=== PATIENT | female | born 1965 | race Caucasian/White ===

== ENCOUNTER → 2017-08-02 | Outpatient (CLI) | payer OTHER ==
--- NOTE | 2017-08-02 08:26 | WOMENS IMAGING REPORT ---
EXAM DESCRIPTION: U/S ABDOMEN TOTAL COMPLETED DATE/TIME: 08/02/2017 7:59 am REASON FOR STUDY: RIGHT UPPER QUADRANT PAIN R10.11 RIGHT UPPER QUADRANT PAIN COMPARISON: None. TECHNIQUE: Dynamic and static grayscale images acquired of the abdomen and recorded on PACS. Additio nal selected color Doppler and spectral images recorded. LIMITATIONS: None. FINDINGS: PANCREAS: No masses. Visualized pancreatic duct normal caliber. LIVER: Echotexture is coarse with increased echogenicity consistent with fatty infiltration. LIVER VASCULATURE: Normal directional flow of the main portal vein and hepatic veins. GALLBLADDER: Surgically absent. ULTRASOUND-DETECTED CALDWELL'S SIGN: Not applicable. INTRAHEPATIC DUCTS AND COMMON DUCT: CBD and intrahepatic ducts normal caliber. No filling defects. INFERIOR VENA CAVA: Normal flow. AORTA: No aneurysm. RIGHT KIDNEY: Normal size. Normal echogenicity. No solid or suspicious masses. No hydronephrosis. No calcifications. LEFT KIDNEY: Normal size. Normal echogenicity. No solid or suspicious masses. No hydronephrosis. No calcifications. SPLEEN:Normal size. No solid masses. PERITONEAL AND PLEURAL SPACES: No ascites or effusions. OTHER: No other significant finding. IMPRESSION: FATTY LIVER. NO OTHER SIGNIFICANT FINDING. TECHNICAL DOCUMENTATION: JOB ID: [id number] [employer]- All Rights Reserved
== END ==
LOC: WI 06:56
PROVIDERS: ATTEND Nurse Practitioner Primary Care
DX: R10.11 Right upper quadrant pain (principal); K76.0 Fatty (change of) liver, not elsewhere classified
CPT/HCPCS: 76700

== ENCOUNTER 2017-10-21 14:15 | Emergency (ER) | payer OTHER ==
[2017-10-21] MEDS ORDERED: IBUPROFEN 800 MG TABLET PO ONE (15:49)
[2017-10-21] MEDS ORDERED: SILVER SULFADIAZINE 1% CREAM 25 GM TP ONE (15:49)
--- NOTE | 2017-10-21 15:57 | ER Document Report ---
HPI - HPI Pain Level: 5 Context: Patient is a 52-year-old female presents emergency department after basically touching the surface of her stovetop. Patient states that she has been cooking and is looking for a place to sit down a bowl when she touched the top of her stove since he was no longer red and she burned the surface of her hand. She did not take anything prior to arrival. Has a history of fatty liver disease states that she was told she can never have Tylenol and otherwise has a history of low back pain. She otherwise denies any allergies upon initial history. Has full range of motion of her fingers states that the worst pain is along the top surface of her palm at the base of her fingers where the redness is but there is no evidence of bulla, open wounds or bleeding. Tetanus is up-to-date - REPRODUCTIVE Reproductive: DENIES: : Past Medical History - Social History Smoking Status: Smoker,Current Status Unk Family History: Reviewed & Not Pertinent - Past Medical History Cardiac Medical History: Denies: Hx Coronary Artery Disease, Hx Heart Attack, Hx Hypertension Pulmonary Medical History: Reports: Hx Bronchitis - STATES RECENT HAD BRONCHITIS AND THE FLU (IN AUG) Denies: Hx Asthma, Hx COPD, Hx Pneumonia Neurological Medical History: Denies: Hx Cerebrovascular Accident, Hx Seizures Musculoskeltal Medical History: Denies Hx Arthritis Past Surgical History: Reports: Hx Appendectomy, Hx Cholecystectomy, Hx Orthopedic Surgery - bilat carpel tunnel - Immunizations Hx Diphtheria, Pertussis, Tetanus Vaccination: No Vertical Provider Document - CONSTITUTIONAL Agree With Documented VS: Yes Notes: PHYSICAL EXAM GENERAL: Alert, interacts well. EXTREMITIES: Moves all 4 extremities spontaneously. No edema, radial and dorsalis pedis pulses 2/4 bilaterally. No cyanosis. NEUROLOGICAL: Alert and oriented x4. Normal speech. PSYCH: Normal affect, normal mood. SKIN: Warm, dry, normal turgor. Only erythema over the palmar surface over the distal metacarpals at the base of the fingers without any evidence of erythema, bulla of the surrounding castillo surface, digits. Patient with full range of motion. Cap refill is intact. - INFECTION CONTROL TRAVEL OUTSIDE OF THE [place] IN LAST 30 DAYS: No - RESPIRATORY O2 Sat by Pulse Oximetry: 98 Course - Re-evaluation Re-evalutation: 10/21/17 16:18 Patient is a 52-year-old female who is hemodynamically stable, no acute distress and afebrile. Burn occurred approximately 1-2 hours prior to arrival. At this time does not show any evidence of developing dermal injury with evidence of blisters. Educated patient on signs and symptoms indicating need for silver Silvadene cream which will send her home with an indications for return to the emergency department though be concerning for underlying infection. Otherwise to f/u with primary care in 3-5 days. While discussing pain medication patient was offered a home prescription for tramadol which she initially accepted after review of use and side effects but upon review of her allergies that were noted in the computer and showed tramadol and again reviewed with her she states she had nausea with it before. She declined dose here or prescription. She had not taken any motrin BUTCHER SCULLION, declined at [facility] and now requesting Motrin to be given. - Vital Signs Vital signs: Temp Pulse Resp BP Pulse Ox 97.5 F 66 16 139/55 H 98 10/21/17 14:43 10/21/17 14:43 10/21/17 14:43 10/21/17 14:43 10/21/17 14:43 Discharge - Discharge Clinical Impression: Burn, hand, first degree Qualifiers: Encounter type: initial encounter Burn of hand location: multiple sites Laterality: left Qualified Code(s): T23.192A - Burn of first degree of multiple sites of left wrist and hand, initial encounter Condition: Good Disposition: HOME, SELF-CARE Instructions: Taylor ([facility]), Use of Spig-Ppj-Muuigyc Ibuprofen ([facility]), Silvadene Cream ([facility]), Soap Cleansing ([facility]) Additional Instructions: You were seen for taylor today. Please clean and dress the areas twice daily and then apply the Silvadene cream that you were sent home with. Keep the area clean and dressed. Please return if you develop pus from the wounds, spreading redness from the areas, worsening pain, or any other symptoms that are worrisome to you. Please follow-up with your primary care doctor in the next 1- 2 days. Referrals: MAMI HOLDER NP [Primary Care Provider] - Follow up in 1 week
[2017-10-21 16:14] VITALS: BP 145/96
== END 2017-10-21 16:13 | disposition home or self-care (01) ==
LOC: ER 14:15
DX: T23.192A Burn of first degree of multiple sites of left wrist and hand, initial encounter (principal); X15.0XXA Contact with hot stove (kitchen), initial encounter; Y93.G3 Activity, cooking and baking
CPT/HCPCS: 99283

== ENCOUNTER → 2017-12-04 | Outpatient (CLI) | payer OTHER ==
[2017-12-06 15:13] LABS: ANTINUCLEAR ANTIBODIES Negative (Negative)
== END ==
LOC: OD 14:50
PROVIDERS: ATTEND Internal Medicine Gastroenterology
DX: K76.0 Fatty (change of) liver, not elsewhere classified (principal)
CPT/HCPCS: 36415; 86038; 86256

== ENCOUNTER 2017-12-30 06:55 | Day surgery (SDC) | payer OTHER ==
[2017-12-30] MEDS ORDERED: PROPOFOL INJ 200 MG/20 ML VIAL IV ONE (07:16)
[2017-12-30 08:52] VITALS: BP 111/61
--- NOTE | 2017-12-30 12:56 | Operative Report ---
Operative Report DATE OF SURGERY: 12/30/17 Operative Report: The risks, benefits and alternatives of the procedure including risks of bleeding, perforation requiring surgery are explained to the patient in detail and informed consent is obtained. Patient was taken back to the endoscopy suite and placed in the left, lateral decubital position. Timeout was called. Propofol medications administered. A rectal examination is done which did not reveal any masses, tears or fissures. An Olympus videoscope is inserted into the patient's rectum. The scope was then carefully advanced all the way to the cecum. The cecum was identified by the usual anatomical landmarks including the ileocecal valve as well as the appendiceal office. Photodocumentation is obtained. The scope was then sequentially pulled back via the various segments of the colon including the ascending colon, hepatic flexure, transverse colon, splenic flexure, descending colon and finally into the rectosigmoid portions of the colon. Retroflexion maneuvers performed. PREOPERATIVE DIAGNOSIS: Change in bowel habits POSTOPERATIVE DIAGNOSIS: Colon polyp was removed via biopsy forceps. Internal hemorrhoids. Diverticulosis OPERATION: Colonoscopy with biopsy SURGEON: JUAN LUTZ ANESTHESIA: LMAC TISSUE REMOVED OR ALTERED: As noted above. COMPLICATIONS: None. ESTIMATED BLOOD LOSS: None. INTRAOPERATIVE FINDINGS: As noted above. PROCEDURE: Patient tolerated procedure well. No immediate postprocedure complications are noted. Patient discharged in good condition. Discharge date 12/30/2017. Discharge diet: Regular. Discharge activity: Regular. 2-3 week follow-up to discuss findings. Patient is instructed to call the office or proceed to the emergency room should there be any further problems or questions. We will wait on pathology. If biopsies are negative,10 year surveillance colonoscopy.
== END 2017-12-30 08:55 | disposition home or self-care (01) ==
LOC: END 06:55
PROVIDERS: ATTEND Internal Medicine Gastroenterology
DX: K64.8 Other hemorrhoids (principal); K57.30 Diverticulosis of large intestine without perforation or abscess without bleeding; D12.6 Benign neoplasm of colon, unspecified; K76.0 Fatty (change of) liver, not elsewhere classified; E66.9 Obesity, unspecified; F17.210 Nicotine dependence, cigarettes, uncomplicated; Z88.0 Allergy status to penicillin; Z88.8 Allergy status to other drugs, medicaments and biological substances; Z88.6 Allergy status to analgesic agent; Z68.41 Body mass index [BMI] 40.0-44.9, adult; Z79.899 Other long term (current) drug therapy
CPT/HCPCS: 45380; 88305 ×2; J2704; 811

== ENCOUNTER → 2018-02-04 | Outpatient (CLI) | payer OTHER ==
--- NOTE | 2018-02-10 13:12 | WOMENS IMAGING REPORT ---
EXAM DESCRIPTION: 3D SCREENING MAMMO BILAT COMPLETED DATE/TIME: 02/04/2018 2:31 pm REASON FOR STUDY: SCREENING MAMMO Z12.31 ENCNTR SCREEN MAMMOGRAM FOR MALIGNANT NEOPLASM OF AVEL COMPARISON: None. TECHNIQUE: Standard craniocaudal and mediolateral oblique views of each breast recorded using digita l acquisition and breast tomosynthesis. LIMITATIONS: None. FINDINGS: Findings present which are benign by mammographic criteria. No suspicious masses, calcifi cations or architectural distortion. Pertinent benign findings: Circumscribed nodules in both breasts. These have mammographic appearance of the incidental intramammary lymph nodes. Read with the assistance of CAD. .[facility] - R2 Cenova Version 1.3 .[facility] Imaging - R2 Cenova Version 1.3 .[facility] Imaging - R2 Cenova Version 2.4 .[facility] - R2 Cenova Version 2.4 .[facility] - R2 [employer] Mounter Version 9.2 Benign mammographic findings may include one or more of the following: Smooth masses, popcorn/rim/co arse calcifications, asymmetries, post-procedure changes, and lesions with long-standing stability. IMPRESSION: BENIGN MAMMOGRAPHIC FINDINGS. BIRADS 2 BREAST DENSITY: a. The breasts are almost entirely fatty. BIRAD: 2 BENIGN FINDING(S) RECOMMENDATION: RECOMMENDATION: ROUTINE SCREENING COMMENT: The patient has been notified of the results by letter per SA requirements. Additional no tification policies are in place for contacting patient with suspicious or incomplete findings. Quality ID #[id number]: The [employer] recommends an annual screening mammogram for women aged 40 years or over. This facility utilizes a reminder system to ensure that all patients receive reminder letters, and/or direct phone calls for appointments. This includes reminders for routine scr eening mammograms, diagnostic mammograms, or other Breast Imaging Interventions when appropriate. Th is patient will be placed in the appropriate reminder system. The [employer] (ACR) has developed recommendations for screening MRI of the breast s in certain patient populations, to be used in conjunction with mammography. Breast MRI surveillanc e may be appropriate for women with more than 20% lifetime risk of developing breast cancer as deter mined by genetic testing, significant family history of the disease, or history of mantle radiation f or Hodgkins Disease. ACR Practice Guidelines 2008. DBT Technology DBT is a type of tomographic mammography. With conventional mammography, overlapping breast tissue ma y make lesions difficult to detect, even with good compression. DBT uses an x-ray tube that rotates a round the breast, taking images at different angles. These images are then combined to create thin sl ices of the breast that the radiologist can view as a 3D reconstruction. The [employer] unit can perform full-field digital mammograms (2D imaging); or DBT (3D imaging); or both, in a combination mode that quickly performs both the mammogram and the tomosynthesis scan while the breast is still compressed. PQRS 6045F: Fluoroscopic imaging is not utilized for breast tomosynthesis. TECHNICAL DOCUMENTATION: FINDING NUMBER: (1) ASSESSMENT: (1) JOB ID: [id number] [employer]- All Rights Reserved Reading location - IP/workstation name: [email or web address]
== END ==
LOC: WI 14:13
PROVIDERS: ATTEND Nurse Practitioner Primary Care
DX: Z12.31 Encounter for screening mammogram for malignant neoplasm of breast (principal)
CPT/HCPCS: 77063; 77067

== ENCOUNTER → 2018-11-24 | Outpatient (CLI) | payer OTHER ==
--- NOTE | 2018-11-24 10:53 | RADIOLOGY REPORT (SQ) ---
EXAM DESCRIPTION: MRI LUMBAR SPINE WITHOUT COMPLETED DATE/TIME: 11/24/2018 8:55 am REASON FOR STUDY: OTHER INTERVERTEBRAL DISC DEGENERATION, LUMBAR REGION M51.36 OTHER INTERVERTEBRAL DISC DEGENERATION, LUMBAR REGION COMPARISON: MRI lumbar spine 12/31/2015 CT abdomen pelvis 01/02/2016 TECHNIQUE: Sagittal and Axial imaging includes T1, T2, STIR and gradient echo sequences. Coronal T2/ HASTE imaging. LIMITATIONS: None. FINDINGS: VISUALIZED UPPER ABDOMEN: Limited evaluation. No acute or suspicious findings suggested. SEGMENTATION: No transitional anatomy. The lowest well-developed disc space is labeled L5-S1. ALIGNMENT: Very mild grade 1 anterolisthesis of L3 over L4, and L4 over L5 related to advanced bilate ral facet arthropathy VERTEBRAE: Intact. BONE MARROW: Normal. No marrow replacement or reactive changes. DISC SIGNAL: Diffuse decreased T2 weighted intervertebral disc signal POSTERIOR ELEMENTS: Bulky bilateral facet arthropathy at L3-4 and L4-5 HARDWARE: None in the spine. CORD AND CONUS: Normal in size and signal intensity. Conus at the L1-2 level. SOFT TISSUES: No aortic aneurysm seen. No bulky retroperitoneal adenopathy or mass. No paraspinal mas s or fluid. T11-12: At the upper edge of the field of view. Bulky bilateral facet hypertrophy is present withou t central or foraminal encroachment T12-L1: Unremarkable L1-L2: Broad diffuse posterior disc bulge and bony spurring along with mild bilateral facet hypertrop hy causes borderline central canal stenosis. There is mild bilateral inferior foraminal narrowing wi thout exiting L1 nerve root impingement. L2-L3: Moderate bilateral facet hypertrophy. No significant posterior disc bulging or central or for aminal stenosis. L3-L4: Minimal anterolisthesis of L3 over L4. Bulky bilateral facet hypertrophy and ligamentum flavu m thickening is present. Mild diffuse posterior disc bulging. This causes mild to moderate central canal narrowing with flattening of the thecal sac into a triangular shape, and partial effacement of CSF around the lumbar nerve roots. This finding is best shown on axial T2 image 17 through 19, and s agittal image 8. Elsewhere at L3-4, there is mild bilateral foraminal narrowing without definite exi ting L3 nerve root impingement. L4-L5: Very mild anterolisthesis of L4 over L5 with very bulky bilateral facet and ligament hypertrop hy/ ossification. In borderline central canal narrowing. There is mild bilateral inferior foraminal narrowing without exit L4 nerve root impingement. L5-S1: Bulky bilateral facet hypertrophy is present causing mild central canal narrowing. There is m ild bilateral foraminal narrowing from facet hypertrophy without exiting L5 nerve root impingement. SACRUM: Visualized upper sacrum intact. OTHER: No other significant findings. IMPRESSION: Degenerative changes most pronounced at L3-4. TECHNICAL DOCUMENTATION: JOB ID: [id number] [employer]- All Rights Reserved Reading location - IP/workstation name: [email or web address]
== END ==
LOC: RAD 08:01
PROVIDERS: ATTEND Obstetrics & Gynecology
DX: M51.36 Other intervertebral disc degeneration, lumbar region (principal)
CPT/HCPCS: 72148

== ENCOUNTER 2019-05-13 04:06 | Emergency (ER) | payer SELFPAY ==
[2019-05-13] MEDS ORDERED: ASPIRIN 81 MG TABLET, CHEWABLE PO ONE (04:30)
[2019-05-13] MEDS ORDERED: MORPHINE SULFATE 10 MG/ML INJ IV ONE (04:31)
[2019-05-13 05:06] LABS: ABSOLUTE EOSINOPHILS # (AUTO) 0.3 10^3/uL (0.0-0.6); ABSOLUTE LYMPHOCYTES (AUTO) 2.9 10^3/uL (0.5-4.7); ABSOLUTE MONOCYTES (AUTO) 0.7 10^3/uL (0.1-1.4); ABSOLUTE NEUT (AUTO) 4.6 10^3/uL (1.7-8.2); BASOPHILS % (AUTO) 0.6 % (0-2); EOSINOPHILS % (AUTO) 3.1 % (0-6); HEMATOCRIT 38.5 % (36.0-47.0); HEMOGLOBIN 13.3 g/dL (12.0-15.5); LYMPHOCYTES % (AUTO) 33.6 % (13-45); MEAN CORPUSCULAR HEMOGLOBIN 31.3 pg (27.0-33.4); MEAN CORPUSCULAR HGB CONC 34.5 g/dL (32.0-36.0); MEAN CORPUSCULAR VOLUME 91 fl (80-97); MONOCYTES % (AUTO) 8.3 % (3-13); PLATELET COUNT 207 10^3/uL (150-450); RED BLOOD COUNT 4.24 10^6/uL (3.72-5.28); RED CELL DISTRIBUTION WIDTH 13.2 % (11.5-14.0); SEGMENTED NEUTROPHILS % (AUTO) 54.4 % (42-78); TOTAL CELLS COUNTED % (AUTO) 100 %; WHITE BLOOD COUNT 8.5 10^3/uL (4.0-10.5)
--- NOTE | 2019-05-13 05:12 | ER Document Report ---
ED General - General Chief Complaint: Shoulder Pain Stated Complaint: LEFT SHOULDER PAIN Time Seen by Provider: 05/13/19 04:24 Primary Care Provider: CATALINA HOLDER MD [Primary Care Provider] - Follow up as needed TRAVEL OUTSIDE OF THE [place] IN LAST 30 DAYS: No - HPI Notes: 54-year-old female presents left-sided shoulder and back pain. Patient describes pain in her medial scapular region that radiates around her left arm. Sharp, sometimes worse with motion. No discrete injury. No fever, chills or sweats. No cough. No dyspnea. Is concerned because she has a strong family history of heart disease. States she has a history of possible high cholesterol but is not treated. Denies any other cardiac risk factors. No prior history of stress testing, no cath. No cocaine use. Non-smoker. No other modifying factors, no other associated symptoms, no other provocative or palliative factors. - Related Data Allergies/Adverse Reactions: methocarbamol Allergy (Unknown, Verified 12/30/17 07:14) Penicillins Allergy (Unknown, Verified 12/30/17 07:14) latex [Latex] Allergy (Verified 12/30/17 07:14) Rash tramadol [Tramadol] Allergy (Verified 12/30/17 07:14) Hives Past Medical History - Social History Smoking Status: Never Smoker Chew tobacco use (# tins/day): No Frequency of alcohol use: None Drug Abuse: None Family History: Reviewed & Not Pertinent Patient has suicidal ideation: No Patient has homicidal ideation: No - Past Medical History Cardiac Medical History: Reports: Hx Hypercholesterolemia Denies: Hx Coronary Artery Disease, Hx Heart Attack, Hx Hypertension Pulmonary Medical History: Reports: Hx Bronchitis Denies: Hx Asthma, Hx COPD, Hx Pneumonia Neurological Medical History: Denies: Hx Cerebrovascular Accident, Hx Seizures Renal/ Medical History: Denies: Hx Peritoneal Dialysis Musculoskeletal Medical History: Denies Hx Arthritis Past Surgical History: Reports: Hx Appendectomy, Hx Cholecystectomy, Hx Orthopedic Surgery - bilat carpel tunnel - Immunizations Hx Diphtheria, Pertussis, Tetanus Vaccination: No Review of Systems - Review of Systems Notes: Review of systems as in the history of present illness, otherwise negative x 10 systems. Physical Exam - Vital signs Vitals: Resp Pulse Ox 13 96 05/13/19 04:19 05/13/19 04:19 - Notes Notes: General: Well developed . HEENT: Normocephalic, atraumatic. Pupils equal round reactive to light. No JVD. Chest: No trauma. Respiratory: Good air exchange, normal excursion. Cardiac: Regular rhythm. No murmurs or gallops. Abdomen: Soft, benign. Nondistended. Nontender. Back: No asymmetry or gross abnormality. Motor: Grossly normal power and tone. Neurologic: Alert, nonfocal. Cranial nerves II-12 are intact. Sensation intact. Vascular: Well perfused. Normal peripheral pulses. Skin: No petechiae or purpura. Extremities: There is no anterolateral chest or shoulder tenderness, no edema or erythema. However, Rebecca largely reproduce her pain with certain motions such as bringing her arm across her chest Course - Re-evaluation Re-evalutation: 05/13/19 05:11 54-year-old female with atypical pain, I think this is unlikely ACS. Given her atypical pain, prolonged duration of over greater than 12 hours and unrelenting symptoms, I think a single negative troponin makes the posttest probability of ACS acceptably low. Will consider atypical cervical radiculopathy, shoulder strain, bursitis or other etiology. Of note, she has normal pulse and put through all range of motion of the shoulder, no evidence of vascular steal. Normal arterial exam. Plan to proceed with x-ray of the shoulder, chest, troponin, x-ray, EKG and reevaluate. 05/13/19 05:48 Labs reviewed. CBC normal, chemistries normal, troponin normal. Chest x-ray and shoulder are unremarkable. Patient had modest improvement. My suspicion for ACS is very low. Likely mechanical or musculoskeletal. He is discharged home with prescription for diclofenac, already has Flexeril at home, follow-up with primary care doctor the next 24 to 48 hours. - Vital Signs Vital signs: Temp Pulse Resp BP Pulse Ox 97.7 F 69 13 127/72 H 94 05/13/19 04:20 05/13/19 04:20 05/13/19 05:09 05/13/19 05:09 05/13/19 05:09 - Laboratory Result Diagrams: 05/13/19 04:46 05/13/19 04:46 Laboratory results interpreted by me: 05/13/19 04:46 Chloride 108 H BUN 24 H - EKG Interpretation by Me EKG shows normal: Sinus rhythm, Piggott, Intervals, QRS Complexes Voltage: Consistant with LVH Discharge - Discharge Clinical Impression: Shoulder pain Qualifiers: Chronicity: acute Laterality: left Qualified Code(s): M25.512 - Pain in left shoulder Disposition: HOME, SELF-CARE Instructions: Arm Pain, Nonspecific ([facility]) Prescriptions: Diclofenac Sodium 75 mg PO Q12 7 Days #14 tablet.dr Referrals: CATALINA HOLDER MD [Primary Care Provider] - Follow up in 3-5 days
[2019-05-13 05:18] LABS: ANION GAP 8 (5-19); BLOOD UREA NITROGEN 24 mg/dL (7-20); CALCIUM 9.4 mg/dL (8.4-10.2); CARBON DIOXIDE 25 mmol/L (22-30); CHLORIDE 108 mmol/L (98-107); GLUCOSE 108 mg/dL (75-110); POTASSIUM 4.2 mmol/L (3.6-5.0)
--- NOTE | 2019-05-13 05:26 | RADIOLOGY REPORT (SQ) ---
CLINICAL HISTORY: chest pain COMPARISON: July 30, 2014. TECHNIQUE: XR CHEST 1 VIEW 05/13/2019 4:31 AM CDT FINDINGS: Cardiac silhouette is normal in size. Lungs are clear without consolidation, atelectasis, mass or edema. There is no pleural effusion. There is no pneumothorax. There are no acute osseous findings. IMPRESSION: Clear lungs.
--- NOTE | 2019-05-13 05:27 | RADIOLOGY REPORT (SQ) ---
CLINICAL HISTORY: pain COMPARISON: None. TECHNIQUE: XR SHOULDER 2 OR MORE VIEWS 05/13/2019 4:31 AM CDT FINDINGS: There is no fracture. Joint spaces are preserved. Soft tissues are unremarkable. IMPRESSION: No acute osseous findings.
[2019-05-13 06:19] VITALS: BP 108/67
--- NOTE | 2019-05-13 11:31 | EKG REPORT ---
SEVERITY:- ABNORMAL ECG - SINUS RHYTHM LEFT AXIS DEVIATION PROBABLE LEFT VENTRICULAR HYPERTROPHY : Confirmed by: Angel Fox 13-May-2019 11:30:35
== END 2019-05-13 06:21 | disposition home or self-care (01) ==
LOC: ER 04:06
DX: M25.512 Pain in left shoulder (principal); M54.9 Dorsalgia, unspecified; M79.602 Pain in left arm
CPT/HCPCS: 93005; 99284; 96374; 36415; 85025; 80048; 84484; 71045; 73030; 93010; J2270